=== PATIENT | male | born 1960 | race Caucasian/White ===

== ENCOUNTER 2020-12-24 09:03 | Emergency (ER) | payer BC, OTHER ==
[~2020-12-24] VITALS: Ht 182.9 cm; Wt 106.8 kg
[~2020-12-24 09:03] MED LIST: OMEPRAZOLE DR 40 MG CAPSULE; POTASSIUM CITRATE 10 MEQ; SIMVASTATIN 40 MG TABLET; TERBINAFINE 250 MG
[2020-12-24 09:14] VITALS: BP 168/115
[2020-12-24] MEDS ORDERED: dexamethasone sod phosphate 10mg/ml inj IV STA (09:27)
[2020-12-24] MEDS ORDERED: diazepam inj 5 MG/ML inj. IV ONE (09:30)
[2020-12-24] MEDS ORDERED: HYDROcodone/acetaminophen 5mg/325mg tablet PO ONE (09:30)
[2020-12-24] MEDS ORDERED: CYCL-1 PO (10:00)
[2020-12-24] MEDS ORDERED: NAPR-56 PO (10:00)
[2020-12-24] MEDS ORDERED: GABA100C PO (15:42)
[2020-12-24] MEDS ORDERED: OXYC-150 PO (15:42)
[2020-12-24] MEDS ORDERED: PANT40TA54 PO (16:08)
[2020-12-24] MEDS ORDERED: SIMV-45 PO (16:08)
[2020-12-26] MEDS ORDERED: NORT10CA2 PO (11:35)
[2020-12-26] MEDS ORDERED: DIAZ10TA4 PO (11:35)
[2020-12-26] MEDS ORDERED: GABA-534 PO (11:35)
[2020-12-26] MEDS ORDERED: OXYC1TAB17 PO (11:35)
== END 2020-12-24 10:28 | disposition home or self-care (01) ==
LOC: ER 09:04
DX: G89.29 Other chronic pain (principal); M54.32 Sciatica, left side; Z79.899 Other long term (current) drug therapy; Z72.89 Other problems related to lifestyle
CPT/HCPCS: 96374; 96375; 99284; J1100; J3360